=== PATIENT | male | born 1945 | race Caucasian/White ===

== ENCOUNTER 2018-03-31 08:09 | Outpatient (CLI) | payer MEDICARE, OTHER ==
--- NOTE | 2018-03-31 11:26 | CT ---
CT NECK SOFT TISSUES WITH CONTRAST: Date: 03-31-18 History: 73-year-old male with R22.1 neck mass. According to the office technologist, the patient's original swelling under the chin has resolved, but patient now has pressure feeling in center of neck. FINDINGS: Nonspecific 1.4 x 1.8 x 1.8 cm nodule exophytically protruding posteriorly from the mid pole of the r ight lobe of the thyroid gland. This thyroid nodule has mixed heterogeneous attenuation. No thyromega ly. Normal larynx. No solid or cystic mass or edema involving sublingual or submandibular space. Lowe ruth ann, there is mild fat stranding in the subcutaneous superficial fat superficial to the mandibular sy mphysis, but no enlarged lymph nodes in that location. No cervical lymphadenopathy in general through out the neck. No major pathology identified involving the submandibular, parotid, carotid, parapharyn geal, perivertebral, retropharyngeal, public message service supervisor or posterior cervical spaces. Nonspecific interstiti al densities throughout the lung apices. Large focal and broad based disc/osteophyte complexes severe ly protruding into the anterior aspect of the spinal canal at multiple levels causing multilevel prerna re central spinal canal stenosis. Bilateral large uncinate process osteophytes causing multilevel sev ere neural foraminal stenosis. IMPRESSION: 1. Small area of fat stranding consistent with edema in the superficial subcutaneous fat in the pre-m ental/submental region. 2. Cervical spondylosis with multilevel severe central spinal canal stenosis and multilevel severe bi lateral neural foraminal stenosis. 3. No evidence of abscess and no submandibular mass. POS: [facility]
[2018-03-31] MEDS ORDERED: ISOVUE-370 76%-LOCM 1 ML ONE (12:37)
== END 2018-03-31 08:10 | disposition home or self-care (01) ==
LOC: BICCT 08:09
PROVIDERS: ATTEND Family Medicine
DX: R22.1 Localized swelling, mass and lump, neck (principal); M47.812 Spondylosis without myelopathy or radiculopathy, cervical region; M48.02 Spinal stenosis, cervical region
CPT/HCPCS: 70491; 82565

== ENCOUNTER 2020-12-12 14:34 | Outpatient (CLI) | payer MEDICARE, OTHER ==
[~2020-12-12 14:34] MED LIST: Iopamidol 370 76% 100 ML VIAL ONE
== END 2020-12-12 14:35 | disposition home or self-care (01) ==
LOC: BICCT 14:34
PROVIDERS: ATTEND Family Medicine
DX: R10.31 Right lower quadrant pain (principal); K76.0 Fatty (change of) liver, not elsewhere classified; K44.9 Diaphragmatic hernia without obstruction or gangrene; N28.1 Cyst of kidney, acquired
CPT/HCPCS: 74177; 82565; Q9967

== ENCOUNTER 2020-12-22 12:04 | Outpatient (CLI) | payer MEDICARE, OTHER | END 2020-12-22 12:05 | disposition home or self-care (01) | LOC: BICRAD 12:04 | PROVIDERS: ATTEND Family Medicine | DX: M54.50 Low back pain, unspecified (principal); M47.816 Spondylosis without myelopathy or radiculopathy, lumbar region | CPT/HCPCS: 72100 ==

== ENCOUNTER 2021-01-19 10:31 | Outpatient (CLI) | payer MEDICARE, OTHER | END 2021-01-19 10:32 | disposition home or self-care (01) | LOC: BICCT 10:31 | PROVIDERS: ATTEND Anesthesiology Pain Medicine | DX: M47.816 Spondylosis without myelopathy or radiculopathy, lumbar region (principal); M48.061 Spinal stenosis, lumbar region without neurogenic claudication | CPT/HCPCS: 72131 ==

== ENCOUNTER 2022-04-24 10:28 | Outpatient (CLI) | payer MEDICARE, OTHER ==
[~2022-04-24 10:28] MED LIST changes: -Iopamidol 370 76% 100 ML VIAL ONE; +Iopamidol-370 76% 500 ML 1 ML ONE
== END 2022-04-24 10:29 | disposition home or self-care (01) ==
LOC: BICCT 10:28
PROVIDERS: ATTEND Family Medicine
DX: R22.1 Localized swelling, mass and lump, neck (principal); M47.812 Spondylosis without myelopathy or radiculopathy, cervical region; J34.89 Other specified disorders of nose and nasal sinuses
CPT/HCPCS: 70491; 82565

== ENCOUNTER 2024-04-01 13:03 | Outpatient (CLI) | payer MEDICARE, OTHER | END 2024-04-01 13:04 | disposition home or self-care (01) | LOC: BICCT 13:03 | PROVIDERS: ATTEND Internal Medicine Gastroenterology | DX: K21.9 Gastro-esophageal reflux disease without esophagitis (principal); R22.1 Localized swelling, mass and lump, neck; R10.31 Right lower quadrant pain; K76.0 Fatty (change of) liver, not elsewhere classified; K86.89 Other specified diseases of pancreas; N28.9 Disorder of kidney and ureter, unspecified; Z90.49 Acquired absence of other specified parts of digestive tract | CPT/HCPCS: 36415; 74177; 82565 ==